=== PATIENT | male | born 1980 | race Caucasian/White ===

== ENCOUNTER 2018-01-13 21:21 | Emergency (ER) | payer MEDICAID ==
--- NOTE | 2018-01-13 22:21 | EDM.PDOC ---
ED HPI GENERAL MEDICAL PROBLEM - General Chief Complaint: Respiratory Problem Stated Complaint: SOB AND Time Seen by Provider: 01/13/18 22:02 Source of Information: Reports: Patient, Family (), RN Notes Reviewed History Limitations: Reports: No Limitations - History of Present Illness INITIAL COMMENTS - FREE TEXT/NARRATIVE: The patient states that he developed generalized fatigue yesterday, then chest and nasal congestion, a cough productive of green sputum, and a sore throat this morning, that got worse today. No recent fever. The patient took NyQuil tonight, which only made him tired, but did not help with his symptoms. No prior similar symptoms. The patient's PCP is Olena Salomon. Throat Pain Score (Numeric/FACES): 8 - Related Data Allergies Allergy/AdvReac Type Severity Reaction Status Date / Time No Known Allergies Allergy Verified 01/13/18 21:33 Home Meds: Home Meds Aspirin [Halfprin] 81 mg PO DAILY 01/13/18 [History] Cholecalciferol (Vitamin D3) [Vitamin D3] 0 unit PO DAILY 01/13/18 [History] Lisinopril/Hydrochlorothiazide [Lisinopril-Hctz 20-12.5 mg Tab] 1 tab PO DAILY 01/13/18 [History] metFORMIN [Glucophage XR] 1,000 mg PO BID 01/13/18 [History] Past Medical History Cardiovascular History: Reports: High Cholesterol, Hypertension Respiratory History: Reports: Asthma (as a child) Endocrine/Metabolic History: Reports: Diabetes, Type II, Obesity/BMI 30+ - Past Surgical History HEENT Surgical History: Reports: Oral Surgery (wisdom teeth extraction) Dermatological Surgical History: Reports: Other (See Below) (Cyst excised from chin) Social & Family History - Tobacco Use Smoking Status *Q: Current Every Day Smoker Years of Tobacco use: 23 Packs/Tins Daily: 1 - Caffeine Use Caffeine Use: Reports: Coffee, Soda, Tea - Alcohol Use Alcohol Use History: Yes Alcohol Use Frequency: Socially - Recreational Drug Use Recreational Drug Use: No - Living Situation & Occupation Living situation: Reports: , with Spouse, with Family (Son) 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 ED EXAM, GENERAL - Physical Exam Exam: See Below Exam Limited By: No Limitations General Appearance: Alert, WD/WN, No Apparent Distress Eye Exam: Bilateral Eye: EOMI, Normal Inspection Ears: Normal External Exam, Normal Canal, Hearing Grossly Normal, Other (Left tympanic membrane is bulging with clear fluid, and bubbles are seen behind the TM. Mild erythema surrounding the right TM, but no bulging or bubbles seen.) Nose: Normal Inspection, No Blood, Other (Moderate bilateral nasal mucosa edema) Throat/Mouth: Normal Inspection, Normal Lips, Normal Teeth, Normal Gums, Normal Oropharynx, Normal Voice, No Airway Compromise Head: Atraumatic, Normocephalic Neck: Normal Inspection, Supple, Non-Tender, Full Range of Motion. No: Lymphadenopathy (L), Lymphadenopathy (R) Respiratory/Chest: No Respiratory Distress, Lungs Clear, Normal Breath Sounds, No Accessory Muscle Use. No: Decreased Breath Sounds, Crackles, Rhonchi, Wheezing, Prolonged Expiration Cardiovascular: Normal Peripheral Pulses, Regular Rate, Rhythm, No Gallop, No JVD, No Murmur, No Rub Peripheral Pulses: 4+: Radial (L), Radial (R) GI/Abdominal: Normal Bowel Sounds, Soft, Non-Tender, No Organomegaly, No Distention, No Abnormal Bruit, No Mass, Other (Obese) (Male) Exam: Deferred Rectal (Males) Exam: Deferred Back Exam: Normal Inspection, Full Range of Motion, NT Extremities: Normal Inspection, Normal Range of Motion, No Pedal Edema, Normal Capillary Refill Neurological: Alert, Oriented, Normal Cognition, No Motor/Sensory Deficits Psychiatric: Normal Affect Skin Exam: Warm, Dry, Intact, Normal Color, No Rash Course - Vital Signs Last Recorded V/S: Last Vital Signs Temp 37.2 C 01/13/18 21:32 Pulse 108 H 01/13/18 21:32 Resp 24 H 01/13/18 21:32 BP 171/97 H 01/13/18 21:32 Pulse Ox 96 01/13/18 21:32 - Orders/Labs/Meds Orders: Active Orders 24 hr Category Date Time Status Chest 2V [CR] Stat Exams 01/13/18 22:13 Taken CULTURE STREP A CONFIRMATION [RM] Stat Lab 01/13/18 21:45 Results Rapid Strep w/culture conf [STREP SCRN A RAPID W CULT Lab 01/13/18 21:45 Results CONF] [RM] Stat Labs: Laboratory Tests 01/13/18 01/13/18 Range/Units 22:35 22:35 WBC 9.25 H (4.23-9.07) K/mm3 RBC 4.56 L (4.63-6.08) M/mm3 Hgb 14.8 (13.7-17.5) gm/L Hct 41.4 (40.1-51.0) % MCV 90.8 (79.0-92.2) fl MCH 32.5 H (25.7-32.2) pg MCHC 35.7 H (32.2-35.5) g/dl RDW Std Deviation 40.3 (35.1-43.9) fL Plt Count 141 L (163-337) K/mm3 MPV 10.6 (9.4-12.3) fl Neutrophils % (Manual) 78 H (40-60) % Band Neutrophils % 0 (0-10) % Lymphocytes % (Manual) 15 L (20-40) % Atypical Lymphs % 3 % Monocytes % (Manual) 3 (2-10) % Eosinophils % (Manual) 0 L (0.8-7.0) % Basophils % (Manual) 1 (0.2-1.2) Platelet Estimate Adequate Plt Morphology Comment Normal RBC Morph Comment Normal Sodium 136 (136-145) mEq/L Potassium 4.2 (3.5-5.1) mEq/L Chloride 103 (98-107) mEq/L Carbon Dioxide 27 (21-32) mEq/L Anion Gap 10.2 (5-15) BUN 15 (7-18) mg/dL Creatinine 1.2 (0.7-1.3) mg/dL Est Cr Clr Drug Dosing 80.75 mL/min Estimated GFR (MDRD) > 60 (>60) mL/min BUN/Creatinine Ratio 12.5 L (14-18) Glucose 305 H (74-106) mg/dL Calcium 9.0 (8.5-10.1) mg/dL Total Bilirubin 0.7 (0.2-1.0) mg/dL AST 22 (15-37) U/L ALT 56 (16-63) U/L Alkaline Phosphatase 113 (46-116) U/L Total Protein 6.5 (6.4-8.2) g/dl Albumin 3.4 (3.4-5.0) g/dl Globulin 3.1 gm/dL Albumin/Globulin Ratio 1.1 (1-2) - Re-Assessments/Exams Free Text/Narrative Re-Assessment/Exam: 01/13/18 22:47 2-view chest radiograph appears to be grossly normal. Cardiac silhouette is within normal limits. No pulmonary vascular congestion. No pleural effusions. No focal infiltrate. No pneumothorax. Formal read per the Radiologist pending. 01/13/18 23:54 Test results discussed with the patient and his . As above, the patient's chest radiograph is negative, and while he is a slightly elevated WBC count of 9.25, there is 0% bandemia, not consistent with a bacterial infection. The patient appears to have a viral URI, which was explained to him. I explained that there are no legitimate ihpc-pjy-wbuxmrk cough or cold remedies, however, I am recommending that he use praw-ups-ydgfhlf oxymetazoline nasal spray to relieve his nasal congestion, which is responsible for his perceived dyspnea. I'm also concerned about the patient's blood glucose of 305. The patient admitted that while he is prescribed metformin, he does not take it. I explained the importance of his taking that medication, and recommended that he start checking his blood glucose twice a day, and to keep a log. I would like him to follow-up with his PCP, Olena Salomon, in about a week, to have her determine if metformin alone is adequate. 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 Workup in the ER included a rapid strep test, bloodwork, and a chest x-ray, all of which were unremarkable. You do not have strep throat. You do not have pneumonia. Based on your history, physical exam, and lab tests, you are MOST LIKELY suffering from a viral URI, also known as a common cold. Unfortunately, there are no medicines to get rid of a viral URI - it will have to run its course. We do not recommend that you take any dsyr-zyo-uoothbf cough or cold remedies, as they have been proven to be of no benefit, however, we recommend that you purchase iskh-ahw-rfkocwx oxymetazoline nasal spray in a "pump mist" bottle. [place] one spray up each nostril, wait 5 minutes, then spray a second spray up each nostril. Repeat every 12 hours, for maximum of 5 days. You may also purchase rsly-upe-iblploz nasal saline spray in a pressurized can, such as "Simply Saline". [place] this up each nostril several times a day. This helps to irrigate the sinuses. Your blood sugar was found to be elevated at 305, likely because you are not taking your metformin. We recommend that you start taking your metformin twice a day, as prescribed, and we also recommend that you check your blood sugar twice a day, and keep a log. Follow-up with your PCP, Olena Salomon, in about one week, and bring your blood sugar log with you, so that she can determine if your metformin is adequate for treatment of your diabetes. If any other problems, please do not hesitate to return to the ER. - My Orders Last 24 Hours: My Active Orders 01/13/18 21:45 CULTURE STREP A CONFIRMATION [RM] Stat Rapid Strep w/culture conf [STREP SCRN A RAPID W CULT CONF] [RM] Stat 01/13/18 22:13 Chest 2V [CR] Stat - Assessment/Plan Last 24 Hours: My Active Orders 01/13/18 21:45 CULTURE STREP A CONFIRMATION [RM] Stat Rapid Strep w/culture conf [STREP SCRN A RAPID W CULT CONF] [RM] Stat 01/13/18 22:13 Chest 2V [CR] Stat
--- NOTE | 2018-01-14 07:21 | CR ---
Chest: Two views of the chest were obtained. Comparison: No prior chest x-ray. Heart size and mediastinum are within normal limits for portable technique. Lungs are clear. Bony structures are unremarkable. Impression: 1. Nothing acute is seen on two-view chest x-ray. Diagnostic code #1
== END 2018-01-14 00:09 | disposition home or self-care (01) ==
LOC: SUPCPDRO 21:21 → JD.ED 21:21
DX: J06.9 Acute upper respiratory infection, unspecified (principal); E11.65 Type 2 diabetes mellitus with hyperglycemia; I10 Essential (primary) hypertension; E66.9 Obesity, unspecified; Z91.14 Patient's other noncompliance with medication regimen; Z79.82 Long term (current) use of aspirin; F17.210 Nicotine dependence, cigarettes, uncomplicated
CPT/HCPCS: 36415; 71046; 71046-26; 80053; 85007; 85027; 87081; 87430; 99284